=== PATIENT | male | born 1970 | race Caucasian/White ===

== ENCOUNTER 2018-12-25 08:38 | Day surgery (SDC) | payer OTHER ==
[~2018-12-25] VITALS: Ht 175.3 cm; Wt 90.7 kg
[2018-12-25 09:38] VITALS: BP 134/49
[2018-12-25 15:23] VITALS: BP 142/88
== END 2018-12-25 14:45 | disposition home or self-care (01) ==
LOC: DS 08:38 → OR 10:30 → DS 10:30
PROVIDERS: Neuromusculoskeletal Medicine, Sports Medicine
PROC: 0SBC4ZZ Excision of Right Knee Joint, Percutaneous Endoscopic Approach (ICD-10-PCS; principal; 2018-12-25 10:30)
DX: M23.222 Derangement of posterior horn of medial meniscus due to old tear or injury, left knee (principal)
CPT/HCPCS: J0690; J2250; J2405; J2704; J3010; J3490; J7120